=== PATIENT | male | born 1985 | race Two or more races ===

== ENCOUNTER 2020-01-15 04:57 | Emergency (ER) | payer OTHER, BC ==
[~2020-01-15] VITALS: Ht 170.2 cm; Wt 74.8 kg
[2020-01-15 05:00] VITALS: BP 149/82
== END 2020-01-15 09:41 | disposition home or self-care (01) ==
LOC: ER 04:57 → EDBD 04:57 → ER 08:25
DX: S50.812A Abrasion of left forearm, initial encounter (principal); G43.909 Migraine, unspecified, not intractable, without status migrainosus; V89.2XXA Person injured in unspecified motor-vehicle accident, traffic, initial encounter; Y93.89 Activity, other specified; Y92.89 Other specified places as the place of occurrence of the external cause; Y99.8 Other external cause status